=== PATIENT | male | born 1965 | race Hispanic/Latino ===

== ENCOUNTER 2021-07-21 10:40 | Emergency (ER) | payer OTHER ==
[~2021-07-21] VITALS: Ht 165.1 cm; Wt 86.4 kg
[2021-07-21 10:57] VITALS: BP 165/104
[2021-07-21 11:00] VITALS: BP 151/88
[2021-07-21 11:31] VITALS: BP 147/84
[2021-07-21 11:39] VITALS: BP 139/83
[2021-07-21 12:00] VITALS: BP 148/83
[2021-07-21 12:31] VITALS: BP 143/85
[2021-07-21] MEDS ORDERED: ZESTRIL10 M1 PO (12:39)
[2021-07-21] MEDS ORDERED: MOTRIN400 MG/TAB PO (12:39)
== END 2021-07-21 12:50 | disposition home or self-care (01) | DRG 605 ==
LOC: ED 10:40
DX: S80.212A Abrasion, left knee, initial encounter (principal); M25.552 Pain in left hip; M25.572 Pain in left ankle and joints of left foot; I10 Essential (primary) hypertension; W18.30XA Fall on same level, unspecified, initial encounter; Y93.89 Activity, other specified; Y92.89 Other specified places as the place of occurrence of the external cause; Y99.0 Civilian activity done for income or pay